=== PATIENT | male | born 1960 | race African-American/Black ===

== ENCOUNTER 2017-11-01 13:58 | Inpatient (IN) | payer BC ==
[~2017-11-01] VITALS: Ht 185.4 cm; Wt 127.0 kg
[2017-11-01] MEDS ORDERED: LISI10TA5 PO (14:04)
[2017-11-01 15:53] LABS: BASOPHILS % 0.7 % (0.0-2.0); EOSINOPHILS % 2.9 % (0.0-5.0); HEMATOCRIT. 48.4 % (42.0-52.0); HEMOGLOBIN. 15.9 g/dL (14.0-18.0); LYMPHOCYTES % 15.1 % (20.0-50.0); MEAN CORPUSCULAR HEMOGLOBIN 28.3 pg (28.0-32.0); MEAN CORPUSCULAR VOLUME 85.9 fL (80.0-94.0); MEAN PLATELET VOLUME 7.5 fl (7.4-10.4); MONOCYTES % 11.8 % (2.0-8.0); NEUTROPHILS % 69.5 % (40.0-76.0); PLATELET 328 x1000/uL (130-400); RED BLOOD CELL COUNT 5.63 mill/uL (4.7-6.1); RED CELL DISTRIBUTION WIDTH 15.4 % (11.6-14.6)
[2017-11-01 16:02] LABS: CHLORIDE 105 mEq/L (98-107)
[2017-11-01 16:03] LABS: INR 1.1; PROTHROMBIN TIME 11.4 sec (9.4-11.6)
[2017-11-01] MEDS ORDERED: KCL 20MEQ/100ML PREMIX 100 ML IV ONE (22:00)
[2017-11-02 08:44] LABS: CLARITY URINE TURBID (CLEAR); COLOR URINE ORANGE (YELLOW); KETONES URINE NEGATIVE (NEGATIVE); LEUKOCYTE ESTERASE URINE NEGATIVE (NEGATIVE); NITRITE URINE POSITIVE (NEGATIVE); OCCULT BLOOD URINE NEGATIVE (NEGATIVE); PROTEIN URINE 2+ (NEGATIVE); SPECIFIC GRAVITY URINE 1.039 (1.005-1.030)
[2017-11-02] MEDS ORDERED: ACETAMINOPHEN 325MG TABLET PO PRN (08:45)
[2017-11-02] MEDS ORDERED: HYDROCODONE/ACETAMINOPHEN 5/325MG TABLET PO PRN (08:45)
[2017-11-02] MEDS ORDERED: CLONIDINE 0.1MG TABLET PO PRN (08:45)
[2017-11-02] MEDS ORDERED: ONDANSETRON HCL 4MG/2ML VIAL IV PRN (08:45)
[2017-11-02] MEDS ORDERED: IPRATROPIUM/ALBUTEROL 0.5-3(2.5)MG/3ML NEB HHN PRN (08:45)
[2017-11-02 09:23] LABS: *BENZODIAZEPINES SCREEN URINE NEGATIVE (NEGATIVE); METHADONE URINE SCREEN NEGATIVE (NEGATIVE); OPIATES URINE SCREEN NEGATIVE (NEGATIVE); PHENCYCLIDINE URINE SCREEN NEGATIVE (NEGATIVE)
[2017-11-02 09:26] LABS: *AMPHETAMINES SCREEN URINE NEGATIVE (NEGATIVE); *BARBITURATES SCREEN URINE NEGATIVE (NEGATIVE); CANNABINOID URINE SCREEN NEGATIVE (NEGATIVE)
[2017-11-02 09:27] LABS: *COCAINE SCREEN URINE NEGATIVE (NEGATIVE)
[2017-11-02] MEDS ORDERED: BENZONATATE 100MG CAPSULE PO PRN (10:15)
[2017-11-02 12:19] VITALS: BP 130/82
[2017-11-02 12:28] VITALS: BP 130/82
[2017-11-02 13:43] LABS: BG BASE EXCESS 5.1 mmol/L (-2.0-2.0); BG CARBOXYHEMOGLOBIN 1.3 % (0.5-1.5); BG DEOXYHEMOGLOBIN 5.8 % (0.0-5.0); BG FRACTION INSPIRED OXYGEN 32; BG HCO3 ACT 31.5 mmol/L (22.0-26.0); BG OXYGEN SATURATION 94.1 % (92.0-98.5); BG OXYHEMOGLOBIN 92.9 % (94.0-97.0); BG PCO2 52.9 mmHg (35.0-45.0); BG PH 7.393 (7.350-7.450); BG PO2 71.9 mmHg (75.0-100.0); BG SAMPLE SITE RIGHT RADIAL; BG TOTAL HEMOGLOBIN 15.9 g/dL (12.0-18.0); BG VENT MODE NASAL CANNULA
[2017-11-02] MEDS: IPRATROPIUM/ALBUTEROL 0.5-3(2.5)MG/3ML NEB HHN SCH ×2 (15:57→20:42)
[2017-11-02] MEDS: BUDESONIDE 0.5MG/2ML NEB HHN SCH ×2 (15:57→20:30)
[2017-11-02 16:21] VITALS: BP 136/86
[2017-11-02] MEDS: LISINOPRIL 10MG TABLET PO SCH (16:37)
[2017-11-02] MEDS: CEFTRIAXONE 1 G PREMIX 50 ML IV SCH (16:37)
[2017-11-02] MEDS: ENOXAPARIN 30MG/0.3ML SYR SUBCUT SCH ×2 (16:38→23:30)
[2017-11-02] MEDS ORDERED: PNEUMOCOCCAL 23-VAL P-SAC VAC 0.5 ML IM ONE (17:00)
[2017-11-02 20:00] VITALS: BP 128/82
[2017-11-03] VITALS: BP 121/71
[2017-11-03] MEDS: IPRATROPIUM/ALBUTEROL 0.5-3(2.5)MG/3ML NEB HHN SCH ×5 (00:42→20:30)
[2017-11-03 04:00] VITALS: BP 136/74
[2017-11-03 06:53] LABS: BASOPHILS % 1.2 % (0.0-2.0); EOSINOPHILS % 4.8 % (0.0-5.0); HEMATOCRIT. 45.1 % (42.0-52.0); HEMOGLOBIN. 14.8 g/dL (14.0-18.0); MEAN CORPUSCULAR HEMOGLOBIN 28.5 pg (28.0-32.0); MEAN CORPUSCULAR VOLUME 86.7 fL (80.0-94.0); MONOCYTES % 11.4 % (2.0-8.0); NEUTROPHILS % 61.6 % (40.0-76.0); PLATELET 284 x1000/uL (130-400); RED CELL DISTRIBUTION WIDTH 15.3 % (11.6-14.6)
[2017-11-03 07:20] LABS: CHLORIDE 104 mEq/L (98-107)
[2017-11-03] MEDS: BUDESONIDE 0.5MG/2ML NEB HHN SCH (07:37)
[2017-11-03] MEDS ORDERED: POTASSIUM CHLORIDE 20MEQ TABLET SR PO SCH (07:45)
[2017-11-03 08:00] VITALS: BP 149/86
[2017-11-03] MEDS: LISINOPRIL 10MG TABLET PO SCH ×2 (09:36→19:54)
[2017-11-03] MEDS: ENOXAPARIN 30MG/0.3ML SYR SUBCUT SCH ×2 (10:11→23:30)
[2017-11-03 12:00] VITALS: BP 137/79
[2017-11-03 16:00] VITALS: BP 119/76
[2017-11-03] MEDS: BENZONATATE 100MG CAPSULE PO SCH (16:18)
[2017-11-03] MEDS: CEFTRIAXONE 1 G PREMIX 50 ML IV SCH (16:18)
[2017-11-03] MEDS: DILTIAZEM HCL 30MG TABLET PO SCH (16:22)
[2017-11-03 20:00] VITALS: BP 130/77
[2017-11-04] VITALS (19 sets, daily range): BP systolic 111–142; BP diastolic 67–86
[2017-11-04] MEDS: IPRATROPIUM/ALBUTEROL 0.5-3(2.5)MG/3ML NEB HHN SCH ×5 (00:07→20:37)
[2017-11-04] MEDS: DILTIAZEM HCL 30MG TABLET PO SCH ×4 (00:38→21:09)
[2017-11-04] MEDS: BENZONATATE 100MG CAPSULE PO SCH ×4 (00:38→21:09)
[2017-11-04] MEDS ORDERED: FENTANYL CITRATE/PF 50MCG/ML 2ML VIAL ONE (07:48)
[2017-11-04] MEDS: LISINOPRIL 10MG TABLET PO SCH ×2 (08:18→18:00)
[2017-11-04] MEDS ORDERED: LIDOCAINE HCL 1% 20ML VIAL (Pyxis) INJ ONE (08:34)
[2017-11-04] MEDS ORDERED: SODIUM BICARBONATE 4% (2.4MEQ) 5ML VIAL IV ONE (08:34)
[2017-11-04] MEDS ORDERED: FENTANYL CITRATE/PF 50MCG/ML 2ML VIAL IV SCH (09:00)
[2017-11-04] MEDS: BUDESONIDE 0.5MG/2ML NEB HHN SCH ×2 (11:21→20:38)
[2017-11-04] MEDS: ENOXAPARIN 30MG/0.3ML SYR SUBCUT SCH (11:30)
[2017-11-04] MEDS: METHYLPREDNISOLONE SOD SUCC 40 MG/ML VIAL IV SCH ×2 (13:52→21:08)
[2017-11-04] MEDS ORDERED: GUAIFENESIN 600MG ER TABLET PO SCH (21:00)
[2017-11-05] VITALS (7 sets, daily range): BP systolic 124–142; BP diastolic 60–88
[2017-11-05] MEDS: IPRATROPIUM/ALBUTEROL 0.5-3(2.5)MG/3ML NEB HHN SCH ×6 (00:12→20:51)
[2017-11-05] MEDS: ENOXAPARIN 30MG/0.3ML SYR SUBCUT SCH ×3 (00:32→23:51)
[2017-11-05] MEDS: METHYLPREDNISOLONE SOD SUCC 40 MG/ML VIAL IV SCH ×3 (05:03→21:28)
[2017-11-05] MEDS: BENZONATATE 100MG CAPSULE PO SCH ×3 (06:24→21:28)
[2017-11-05] MEDS: DILTIAZEM HCL 30MG TABLET PO SCH ×3 (06:25→21:28)
[2017-11-05] MEDS: BUDESONIDE 0.5MG/2ML NEB HHN SCH (07:46)
[2017-11-05 07:49] LABS: HEMATOCRIT 43.9 % (42.0-52.0); HEMOGLOBIN 14.3 g/dL (14.0-18.0); MEAN CORPUSCULAR HEMOGLOBIN 28.1 pg (28.0-32.0); MEAN CORPUSCULAR VOLUME 86.3 fL (80.0-94.0); PLATELET 289 x1000/uL (130-400); RED BLOOD CELL COUNT 5.09 mill/uL (4.7-6.1); RED CELL DISTRIBUTION WIDTH 15.3 % (11.6-14.6)
[2017-11-05 08:01] LABS: CHLORIDE 99 mEq/L (98-107)
[2017-11-05] MEDS: LISINOPRIL 10MG TABLET PO SCH ×2 (08:37→16:35)
[2017-11-05 11:21] LABS: BG BASE EXCESS 1.7 mmol/L (-2.0-2.0); BG DEOXYHEMOGLOBIN 12.3 % (0.0-5.0); BG HCO3 ACT 25.9 mmol/L (22.0-26.0); BG METHEMOGLOBIN 0.4 % (0.0-1.5); BG OXYGEN SATURATION 87.5 % (92.0-98.5); BG OXYHEMOGLOBIN 86.3 % (94.0-97.0); BG PCO2 39.6 mmHg (35.0-45.0); BG PH 7.434 (7.350-7.450); BG PO2 51.2 mmHg (75.0-100.0); BG SAMPLE SITE RIGHT RADIAL; BG TOTAL HEMOGLOBIN 15.2 g/dL (12.0-18.0); BG VENT MODE ROOM AIR
[2017-11-05] MEDS: GUAIFENESIN-DM 200MG-20MG/10ML UDC PO PRN (23:51)
[2017-11-06] MEDS: IPRATROPIUM/ALBUTEROL 0.5-3(2.5)MG/3ML NEB HHN SCH ×6 (00:05→19:54)
[2017-11-06 04:03] VITALS: BP 125/84
[2017-11-06] MEDS: METHYLPREDNISOLONE SOD SUCC 40 MG/ML VIAL IV SCH (05:39)
[2017-11-06] MEDS: BENZONATATE 100MG CAPSULE PO SCH ×3 (05:40→21:23)
[2017-11-06] MEDS: DILTIAZEM HCL 30MG TABLET PO SCH (05:40)
[2017-11-06 08:00] VITALS: BP 99/66
[2017-11-06] MEDS: LISINOPRIL 10MG TABLET PO SCH (08:24)
[2017-11-06 12:00] VITALS: BP 117/74
[2017-11-06] MEDS: ENOXAPARIN 30MG/0.3ML SYR SUBCUT SCH ×2 (12:36→23:06)
[2017-11-06] MEDS: ASPIRIN 81MG EC TABLET PO SCH (15:11)
[2017-11-06] MEDS: GUAIFENESIN-DM 200MG-20MG/10ML UDC PO PRN ×2 (15:14→21:27)
[2017-11-06 16:00] VITALS: BP 130/82
[2017-11-06] MEDS: PREDNISONE 20MG TABLET PO SCH (18:48)
[2017-11-06] MEDS: BUDESONIDE 0.5MG/2ML NEB HHN SCH (19:54)
[2017-11-06 20:00] VITALS: BP 123/79
[2017-11-06] MEDS: DILTIAZEM HCL 60MG TABLET PO SCH (21:23)
[2017-11-07] VITALS: BP 137/74
[2017-11-07] MEDS: IPRATROPIUM/ALBUTEROL 0.5-3(2.5)MG/3ML NEB HHN SCH ×4 (00:23→12:07)
[2017-11-07] MEDS: DILTIAZEM HCL 60MG TABLET PO SCH ×2 (05:05→13:36)
[2017-11-07] MEDS: BENZONATATE 100MG CAPSULE PO SCH ×2 (05:05→13:39)
[2017-11-07 05:09] VITALS: BP 119/78
[2017-11-07] MEDS: GUAIFENESIN-DM 200MG-20MG/10ML UDC PO PRN ×2 (05:09→13:39)
[2017-11-07 08:00] VITALS: BP 121/81
[2017-11-07] MEDS: BUDESONIDE 0.5MG/2ML NEB HHN SCH (08:00)
[2017-11-07 09:44] VITALS: BP 121/81
[2017-11-07] MEDS: PREDNISONE 20MG TABLET PO SCH (09:48)
[2017-11-07] MEDS: ASPIRIN 81MG EC TABLET PO SCH (09:48)
[2017-11-07 11:50] VITALS: BP 124/82
[2017-11-07] MEDS: ENOXAPARIN 30MG/0.3ML SYR SUBCUT SCH (13:36)
[2017-11-07 16:05] VITALS: BP 130/85
== END 2017-11-07 17:10 | disposition home or self-care (01) | DRG 180 ==
LOC: ER 13:58 → 6WST 22:01 → ENRESERV 11-02 10:06
PROVIDERS: ADMIT Internal Medicine; ATTEND Internal Medicine
PROC: 0BBC3ZX Excision of Right Upper Lung Lobe, Percutaneous Approach, Diagnostic (ICD-10-PCS; principal; 2017-11-04)
DX: C78.01 Secondary malignant neoplasm of right lung (principal); J96.00 Acute respiratory failure, unspecified whether with hypoxia or hypercapnia; E43 Unspecified severe protein-calorie malnutrition; N39.0 Urinary tract infection, site not specified; D68.59 Other primary thrombophilia; J84.9 Interstitial pulmonary disease, unspecified; E87.6 Hypokalemia; K21.9 Gastro-esophageal reflux disease without esophagitis; I27.20 Pulmonary hypertension, unspecified; R59.0 Localized enlarged lymph nodes; R91.8 Other nonspecific abnormal finding of lung field; I10 Essential (primary) hypertension; E66.9 Obesity, unspecified; I48.91 Unspecified atrial fibrillation; Z68.36 Body mass index [BMI] 36.0-36.9, adult
CPT/HCPCS: 32405; 36415; 36600; 71045; 71250; 77012; 80048; 80053; 80061; 80305; 81003; 82375; 82805; 82962; 83036; 83735; 83880; 84443; 84484; 85025; 85027; 85379; 85610; 87040; 87086; 88305; 90732; 93005; 93306; 93970; 94640; 96365; 96366; 99285; J0696; J1650; J2920; J3010; J3480; J3490; J7040; J7050; J7512; J7620; J7626